=== PATIENT | female | born 1995 | race Caucasian/White ===

== ENCOUNTER 2017-03-22 01:46 | Inpatient (IN) | payer BC, MEDICAID ==
[~2017-03-22] VITALS: Ht 162.6 cm; Wt 70.3 kg
[~2017-03-22 01:46] MED LIST: FERR-89 PO; PREN-64 PO
[2017-03-22 03:26] LABS: BASOPHILS % (AUTO) 0.6 % (0.0-2.0); EOSINOPHILS % (AUTO) 1.8 % (1.0-6.0); HEMATOCRIT 39.3 % (36-46); HEMOGLOBIN 13.3 g/dL (12.0-16.0); LYMPHOCYTES % (AUTO) 24.4 % (22.0-44.0); MEAN CORPUSCULAR HEMOGLOBIN 28.7 pg (26.0-34.0); MEAN CORPUSCULAR HGB CONC 33.9 G/dL (31.0-37.0); MEAN CORPUSCULAR VOLUME 85 fL (80-100); MONOCYTES # (AUTO) 0.7 K/uL (0.1-1.0); MONOCYTES % (AUTO) 8.5 % (2.0-9.0); NEUTROPHILS # (AUTO) 5.4 K/uL (1.8-7.7); NEUTROPHILS % (AUTO) 64.7 % (40.0-70.0); PLATELET COUNT (AUTO) 290 K/uL (150-450); RED BLOOD CELL COUNT(AUTO) 4.64 MIL/uL (4.00-5.20); RED CELL DISTRIBUTION WIDTH 13.4 % (11.5-14.5); WHITE BLOOD COUNT (AUTO) 8.4 K/uL (4.5-11.0)
[2017-03-22 03:36] LABS: ANION GAP 9 mmol/L (8-16); CARBON DIOXIDE 27 mmol/L (22-29); CHLORIDE 105 mmol/L (98-107); CREATININE 0.78 mg/dL (0.60-1.30); GLOMERULAR FILTR. RATE CALC > 60 mL/min (>60); POTASSIUM 4.2 mmol/L (3.5-5.1); SODIUM SERUM 141 mmol/L (136-145); UREA NITROGEN, BLOOD 18 mg/dL (7-18)
[2017-03-22 03:43] LABS: ALANINE AMINOTRANSFERASE 21 U/L (12-78); ASPARTATE AMINOTRANSFERASE 13 U/L (15-37); BILIRUBIN,TOTAL 0.3 mg/dL (0.1-1.0); TOTAL PROTEIN, SERUM 7.9 g/dL (6.4-8.2)
[2017-03-22 05:40] VITALS: BP 121/76
[2017-03-22 06:20] LABS: APPEARANCE,URINE CLOUDY (CLEAR); GLUCOSE, URINE (UA) NEGATIVE (NEGATIVE); KETONES,URINE TRACE mg/dL (NEGATIVE); LEUKOCYTE ESTERASE ,URINE TRACE (NEGATIVE); OCCULT BLOOD,URINE NEGATIVE (NEGATIVE); PH,URINE 6.5 (5.0-8.0); PROTEIN,URINE POS 1+ (NEGATIVE)
[2017-03-22 06:22] LABS: ADD UA MICROSCOPIC YES
[2017-03-22 06:33] LABS: RBC,URINE 0-2 /HPF (0-2); SQUAMOUS EPITHELIAL CELL,UR Few /LPF (None Seen)
[2017-03-22 09:23] VITALS: BP 121/77
[2017-03-22] MEDS ORDERED: BENZOCAINE/MENTHOL LOZENGE MM PRN (10:30)
[2017-03-22] MEDS ORDERED: IBUPROFEN 600 MG TABLET PO PRN (10:30)
[2017-03-22] MEDS ORDERED: ALBUTEROL SULFATE HFA 90 MCG/PUFF 8 GM INHALER IH PRN (10:30)
[2017-03-22] MEDS ORDERED: MAGNESIUM HYDROXIDE SUSPENSION 30 ML UDCUP PO PRN (10:30)
[2017-03-22] MEDS ORDERED: ACETAMINOPHEN 325 MG TABLET PO PRN (10:30)
[2017-03-22] MEDS ORDERED: MAG HYDROX/AL HYDROX/SIMETH ES 30 ML SUSPENSION UDCUP PO PRN (10:30)
[2017-03-22] MEDS ORDERED: BACITRACIN 28.4 GM OINTMENT TP PRN (10:30)
[2017-03-22] MEDS ORDERED: PETROLATUM,WHITE 71 GM JELLY TP PRN (10:30)
[2017-03-22] MEDS ORDERED: ONDANSETRON HCL 4 MG TABLET PO PRN (10:30)
[2017-03-22] MEDS ORDERED: LOPERAMIDE HCL 2 MG CAPSULE PO PRN (10:30)
[2017-03-22] MEDS ORDERED: CloNIDine HCL 0.1 MG TABLET PO PRN (10:30)
[2017-03-22] MEDS ORDERED: PROZ10 PO (11:49)
[2017-03-22] MEDS ORDERED: FLUoxetine HCL 10 MG CAPSULE PO SCH (12:00)
== END 2017-03-22 14:55 | disposition home or self-care (01) | DRG 885 ==
LOC: EMS 01:47 → 3EX 03:44
PROVIDERS: ADMIT Psychiatry & Neurology Child & Adolescent Psychiatry; ATTEND Psychiatry & Neurology Child & Adolescent Psychiatry
DX: F33.2 Major depressive disorder, recurrent severe without psychotic features (principal); F41.9 Anxiety disorder, unspecified; G47.00 Insomnia, unspecified; Z79.899 Other long term (current) drug therapy
CPT/HCPCS: 99285; G0480

== ENCOUNTER 2017-05-11 20:03 | Emergency (ER) | payer BC, MEDICAID ==
[~2017-05-11] VITALS: Ht 162.6 cm; Wt 68.0 kg
[~2017-05-11 20:03] MED LIST changes: -FERR-89 PO; -PREN-64 PO; +PROZ10 PO
[2017-05-11] MEDS ORDERED: PredniSONE 20 MG TABLET PO ONE (21:30)
[2017-05-11 21:45] VITALS: BP 104/64
== END 2017-05-11 22:09 | disposition home or self-care (01) ==
LOC: EMS 20:05
DX: T78.40XA Allergy, unspecified, initial encounter (principal); Z91.010 Allergy to peanuts
CPT/HCPCS: 99283; J7512